=== PATIENT | female | born 1970 | race Caucasian/White ===

== ENCOUNTER 2022-05-04 13:24 | Outpatient (CLI) | payer MEDICARE, SELFPAY ==
--- NOTE | 2022-05-04 13:31 | MM_ITS ---
WS: [id number] BILATERAL 3D TOMOSYNTHESIS DIGITAL SCREENING MAMMOGRAPHY WITH CAD CLINICAL INFORMATION: SCREENING HISTORY: Screening mammogram. No current complaints. COMPARISON: July 27, 2016 TECHNIQUE: Bilateral CC and MLO views. FINDINGS: Scattered fibroglandular densities bilaterally. Punctate and lucent centered calcifications. No suspi cious focal mass, asymmetry, calcifications, or architectural distortion. No evidence of malignancy. MM/[place] [id number] IMPRESSION: BI-RADS: 2-Benign FOLLOW UP: 1 Year Follow-up Recommend return to annual screening mammography.
== END 2022-05-04 13:25 | disposition home or self-care (01) ==
LOC: RAD 13:25
PROVIDERS: Visit Provider Nurse Practitioner Family
DX: Z12.31 Encounter for screening mammogram for malignant neoplasm of breast (principal)
CPT/HCPCS: 77063; 77067

== ENCOUNTER 2023-07-28 14:02 | Outpatient (CLI) | payer MEDICARE, SELFPAY ==
--- NOTE | 2023-07-28 14:09 | MM_ITS ---
WS: [id number] BILATERAL 3D TOMOSYNTHESIS DIGITAL SCREENING MAMMOGRAM WITH CAD CLINICAL INFORMATION: SCREENING HISTORY: Screening mammogram. No current complaints. COMPARISON: 2021 TECHNIQUE: Bilateral CC and MLO views. FINDINGS: Fatty-replaced breasts bilaterally. No suspicious focal mass, asymmetry, calcifications, or development architect ural distortion. No evidence of malignancy. Incidental punctate calcifications. IMPRESSION: MM/[place] [id number] BI-RADS: 2-Benign FOLLOW UP: 1 Year Follow-up Recommend return to annual screening mammography.
== END 2023-07-28 14:03 | disposition home or self-care (01) ==
PROVIDERS: PCP Family Medicine; Visit Provider Nurse Practitioner Family
DX: Z12.31 Encounter for screening mammogram for malignant neoplasm of breast (principal)
CPT/HCPCS: 77063; 77067

== ENCOUNTER 2023-11-17 13:25 | Observation (INO) | payer MEDICARE, SELFPAY ==
[2023-11-17] VITALS (14 sets, daily range): BP systolic 92–132; BP diastolic 59–79; PULSE 68–97; RESP 16–18; TEMP 36.1–36.9; O2SAT 93–99; BMI 40.1
--- NOTE | 2023-11-17 14:08 | PM.HP ---
Providers/Chief Complaint Admitting Physician: Adalebrto Mix DO Primary Care Provider: Kashmir Lay Chief Complaint: appendicitis History of Present Illness Enriqueta Selby is a 53 year old female to an outside facility with a 2-day history of nausea vomiting diarrhea and abdominal pain. She denies any hematochezia and or melena. Denies any hematemesis. Her abdominal pain began periumbilically and then moved to the right lower quadrant. The pain does not radiate. Pain is dull and constant. Palpation makes pain worse. Nothing makes pain better. CT of the abdomen pelvis done at the outside facility shows acute uncomplicated appendicitis. She has a history of cholecystectomy and no other abdominal surgeries. Review of Systems General: Reports: 10 or more systems reviewed and unremarkable except in HPI and below Medications/Allergies Home Medications Medication Instructions Recorded Confirmed Last Taken Type liothyronine 5 mcg tablet mcg 11/17/23 Unknown History lisinopril 20 tab 11/17/23 Unknown History mg-hydrochlorothiazide 25 mg tablet ondansetron 4 mg disintegrating mg 11/17/23 Unknown History tablet paroxetine HCl 30 mg tablet mg PO 11/17/23 Unknown History thyroid (pork) 120 mg tablet mg 11/17/23 Unknown History ([place] Thyroid) tramadol 50 mg tablet mg 11/17/23 Unknown History Allergies Allergy/AdvReac Type Severity Reaction Status Date / Time Alpha-Gal Allergy ADR-Gastrointestinal Verified 11/17/23 14:06 (Ugqmkvmob-Etlzy-7,3-Gala Upset erythromycin base Allergy ALGY-Rash Verified 11/17/23 14:06 Penicillins Allergy ALGY-Rash Verified 11/17/23 14:06 Vitals/I&O/Wt Last Vital Signs Temp 97 F L 11/17/23 14:04 Pulse 68 11/17/23 14:04 Resp 17 11/17/23 14:04 BP 132/71 11/17/23 14:04 Pulse Ox 94 11/17/23 14:04 O2 Del Method Room Air 11/17/23 14:04 Weight last 48 hrs Weight 241 lb 4.8 oz Physical Exam Narrative: General : Patient is well developed , no acute distress, oriented x3 Head : Normal cephalic, a-traumatic. Ears : Pinnae and external canal are normal. Hearing is normal. Eyes : PERRLA, Sclera and injection are normal. No conjunctival discharge. Nose : Mucous membranes are without erythema. Throat : buccal mucosa is normal, gums are without significant recession or hypertrophy. Lungs : Equal chest rise bilaterally, no use of accessory muscles, trachea is midline. Cor : Rate and rhythm are normal. Abdomen : Soft, ND, tender to palpation right lower quadrant, negative Rovsing sign, no g/r/m Extremities : No edema, no cyanosis or clubbing, dorsalis pedis pulses are present bilaterally, non-tender to palpation of calves. Upper extremities are normal bilaterally. Back : non-tender to palpation, no CVA tenderness. Neuro : CN II - XII intact, Upper and lower extremities have equal and full strength A&P Assessment and plan (1) Acute appendicitis: Plan Laparoscopic Appendectomy The risks and benefits of the procedure, including but not limited to, bleeding, infection, scar, numbness, pain, damage to surrounding structures, conversion to an open procedure, were explained to the patient. He is understanding of the risks and wishes to proceed. Attestations Medical Necessity Statement*: Patient will require 1 night in the hospital for recovery after laparoscopic appendectomy Coding Level of Care Code 59155 Diagnoses Acute appendicitis K35.80
[2023-11-17] MEDS: sodium chloride 0.9% 1,000 ML 30 ML IV (14:12)
--- NOTE | 2023-11-17 14:15 | ANES.PREANE2 ---
Pre-Anesthetic Assessment Height/Weight: Height 1.65 m Weight 109.452 kg Temp Pulse Resp BP Pulse Ox O2 Del Method 97 F L 68 17 132/71 94 Room Air 11/17/23 14:04 11/17/23 14:04 11/17/23 14:04 11/17/23 14:04 11/17/23 14:04 11/17/23 14:04 Operation Date: 11/17/23 14:00 Proposed Procedures p Laparoscopic Appendectomy(Not Applicable) - Adalberto Mix DO Familial anesthetic complications: Patient describes difficulty with intubation b/c of braces and TMJ Was Beta Jj taken within 24 hours: N/A Was Clonidine taken within 24 hours: N/A Social No alcohol and No tobacco Exam alert, oriented x 3, clear to auscultation bilaterally and regular rate & rhythm Airway Submandibular: within normal limits Cervical ROM: within normal limits Mallampati: Class III Dentition: full CV/HEM Hypertension Metabolic Morbid Obesity and Thyroid Disease [facility] [place] [facility] [place] Fibromyalgia Anesthetic Plan ASA status: 3 Anesthesia: General Medications/Allergies Home Medications Medication Instructions Recorded Confirmed Last Taken Type liothyronine 5 mcg tablet 5 mcg PO DAILY 11/17/23 11/17/23 11/16/23 History lisinopril 20 20 - 25 tab PO BID 11/17/23 11/17/23 11/16/23 History mg-hydrochlorothiazide 25 mg tablet ondansetron 4 mg disintegrating 4 mg PO PRN PRN Nausea 11/17/23 11/17/23 11/17/23 History tablet paroxetine HCl 30 mg tablet 30 mg PO DAILY 11/17/23 11/17/23 11/16/23 History thyroid (pork) 120 mg tablet 120 mg PO DAILY 11/17/23 11/17/23 11/16/23 History ([place] Thyroid) tramadol 50 mg tablet 50 mg PO DAILY 11/17/23 11/17/23 11/16/23 History Allergies Allergy/AdvReac Type Severity Reaction Status Date / Time Alpha-Gal Allergy ADR-Gastrointestinal Verified 11/17/23 14:06 (Raiaewcgp-Veijh-5,3-Gala Upset erythromycin base Allergy ALGY-Rash Verified 11/17/23 14:06 Penicillins Allergy ALGY-Rash Verified 11/17/23 14:06 Current Medications Generic Name Dose Route Start Last Admin Trade Name Freq PRN Reason Stop Dose Admin Sodium Chloride 1,000 mls @ 30 mls/hr 11/17/23 14:00 11/17/23 14:12 Sodium Chloride 0.9% IV 11/18/23 13:59 30 mls/hr .Q24H FRANCISCA Administration Data Anesthesia Cardiac Studies: No Data to Display
[2023-11-17] MEDS: clindamycin 600 MG/50 ML PREMIX 100 MG IV (14:29)
[2023-11-17] MEDS: lidocaine-epi 2% 20 mL INJ 10 ML INJECTION (14:52)
--- NOTE | 2023-11-17 15:14 | P.OP_ITS ---
Operative Report Date of procedure: November 17, 2023 Pre-op diagnosis: Acute appendicitis Post-op diagnosis: same Procedure done: Laparoscopic appendectomy Implants: None Specimens removed/disposition: Appendix Surgeon: Adalberto Mix DO Anesthesia: General Estimated blood loss (mL): 5 Complications: None apparent Brief History: This very pleasant 53-year-old female presented to the hospital with abdominal pain. She was diagnosed with acute appendicitis. Laparoscopic appendectomy was indicated. The risk and benefits were explained and documented. Procedure: Patient was wheeled into the operative room and placed on the OR table in a supine position. Abdomen was inspected prepped and draped in usual sterile fashion. Time-out was performed and all present were in agreement. A 15 blade scalp was used to make a stab incision in the left upper quadrant and intra- abdominal insufflation was achieved using a Veress needle. After localizing the tissue incisions were made and a 12 millimeter trocar was placed into the umbilicus as well as a 5mm in the right lower quadrant and a 5 mm in the left lower quadrant . The appendix was identified and was mildly inflamed. I used the Voyant to ligate the mesoappendix at the base. I then used 2 PDS endo-loops to snare the base of the appendix. I then used the Voyant to ligate the appendix distally. The appendix was removed from the abdomen using an Endo- Catch bag through the umbilical incision. I examined the abdomen and no further pathology was identified. Hemostasis was noted. I then closed the umbilical site with a Prashant-Chel and 0 Vicryl suture in a figure of 8 fashion. All ports removed. Skin was washed and dried. Incisions were closed with 4 O Vicryl in a subcuticular interrupted fashion. Skin glue was applied. Patient tolerated the procedure well.
--- NOTE | 2023-11-17 15:50 | ANE.PACU2 ---
Inpatient post-anesthesia follow up: Airway intact: Yes Vital signs: Temperature 97.1 F Pulse Rate 85 Respiratory Rate 17 Blood Pressure 118/60 Pulse Oximetry 98 Oxygen Delivery Me thod Room Air Oxygen Flow Rate 6 Fraction of Inspir ed Oxygen Hydration adequate: Yes Nausea and vomiting: No Pain level: 3 Mental status: Baseline
[2023-11-17] MEDS: D5-NS 0.45% + KCL 20 mEq 20 MEQ/1,000 ML BAG 75 MEQ IV (17:44)
[2023-11-17] MEDS: ketorolac 30 mg/mL INJ IVP ×2 (17:46→21:58)
[2023-11-18] VITALS: BP 98/60; PULSE 78; RESP 17; TEMP 36.9; O2SAT 95
[2023-11-18 04:00] VITALS: BP 99/65; PULSE 80; RESP 17; TEMP 36.9; O2SAT 94
[2023-11-18] MEDS: ketorolac 30 mg/mL INJ IVP (04:46)
[2023-11-18 06:00] VITALS: BMI 40.6
[2023-11-18 08:00] VITALS: BP 123/71; PULSE 84; RESP 14; TEMP 36.5; O2SAT 96
[2023-11-18] MEDS: liothyronine 5 mcg Tablet PO (08:22)
[2023-11-18] MEDS: thyroid 60 mg Tablet 120 MG PO (08:22)
[2023-11-18] MEDS: pantoprazole DR 40 mg Tablet PO (08:23)
[2023-11-18] MEDS: PARoxetine 20 mg Tablet 30 MG PO (08:23)
--- NOTE | 2023-11-18 09:55 | PM.DCS ---
Discharge Providers Date of Admission: 11/17/23 13:25 Date of Discharge: November 18, 2023 Attending Provider at Admission: Adalberto Mix DO Attending Provider at Discharge: Adalberto Mix DO Primary Care Provider: Kashmir Lay Diagnoses at Discharge Discharge Diagnosis (1) Acute appendicitis: Status: Acute Reason for Visit Reason for Visit: appendicitis Hospital Course Hospital Course This is a very pleasant 53-year-old female who presented to the hospital with acute appendicitis. She underwent laparoscopic appendectomy and was discharged home the next day in good condition Physical Exam Narrative: General : Patient is well developed , no acute distress, oriented x3 Head : Normal cephalic, a-traumatic. Ears : Pinnae and external canal are normal. Hearing is normal. Eyes : PERRLA, Sclera and injection are normal. No conjunctival discharge. Nose : Mucous membranes are without erythema. Throat : buccal mucosa is normal, gums are without significant recession or hypertrophy. Lungs : Equal chest rise bilaterally, no use of accessory muscles, trachea is midline. Cor : Rate and rhythm are normal. Abdomen : Soft, ND, appropriately tender no g/r/m Extremities : No edema, no cyanosis or clubbing, dorsalis pedis pulses are present bilaterally, non-tender to palpation of calves. Upper extremities are normal bilaterally. Back : non-tender to palpation, no CVA tenderness. Neuro : CN II - XII intact, Upper and lower extremities have equal and full strength Discharge Data Studies Completed and Pending Pending at discharge Category Date Time Status Pathology: Surgical [PTH] Routine Pth 11/17/23 15:04 Ordered Procedures Performed Laparoscopic appendectomy Vitals Last Vital Signs Temp 97.7 F 11/18/23 08:00 Pulse 84 11/18/23 08:00 Resp 14 11/18/23 08:00 BP 123/71 11/18/23 08:00 Pulse Ox 96 11/18/23 08:00 O2 Del Method Room Air 11/18/23 04:00 O2 Flow Rate 6 11/17/23 15:21 Discharge Plan Discharge Patient Disposition: Home Condition: Stable Prescriptions: New hydrocodone-acetaminophen 7.5-325 mg tablet 1 tab PO Q6H PRN (Reason: pain) Qty: 20 0RF DOK 100 mg capsule 100 mg PO BID Qty: 14 0RF clindamycin HCl 150 mg capsule 150 mg PO QID 7 Days Qty: 28 0RF Continued liothyronine 5 mcg tablet 5 mcg PO DAILY paroxetine HCl 30 mg tablet 30 mg PO DAILY lisinopril-hydrochlorothiazide 20-25 mg tablet 20 - 25 tab PO BID ondansetron 4 mg tablet,disintegrating 4 mg PO PRN PRN (Reason: Nausea) thyroid (pork) [[place] Thyroid] 120 mg tablet 120 mg PO DAILY Held tramadol 50 mg tablet 50 mg PO DAILY Hold Instructions: Resume on 11/23/23. Discharge Orders: Discharge Order (Routine); Ordered 11/18/23 Ordered By: Adalberto Mix Referrals: Adalberto Mix DO [Physician] - 2 weeks Discharge Diet: Advance as tolerated Discharge Activity: Resume usual activity Patient Instructions: Opioid Safety, Post Anesthesia Care Activity Restrictions/Additional Instructions: Do not soak incisions underwater for 2 weeks. Shower daily. Discharge Attestations Time Spent in Discharge Care*: less than 30 min Quality Metrics Clinical Quality Measures [ No reported AMI, CVA or VTE this stay] Coding Level of Care Code Acute Code for [facility] Diagnoses Acute appendicitis K35.80
[2023-11-18 10:37] VITALS: BP 123/71; PULSE 84; RESP 14; TEMP 36.5; O2SAT 96
[2023-11-18 11:31] VITALS: BP 120/76; PULSE 75; RESP 16; TEMP 36.8; O2SAT 93
--- NOTE | 2023-11-18 12:35 | PC.CHAP ---
Pastoral Care Encounter/Spiritual Assessment Type of Contact [] Declined pharmacy informatics manager visit [] Patient/Family/Request visit [] Outpatient visit [] Follow-up visit [] Physician referral [] Code/Alert [] Routine visit [] Staff referral [] Actively dying [] Patient sleeping [] Family support [] [x] Out of room [] Palliative care [] [] Receiving care in room [] Pre-surgical visit [] Trauma [] Long length of stay [] ICU visit [] Other: Relational/Emotional Strength [] Patient feels connected with others/family/visitors/staff [] Distress [] Loneliness/isolation [] Abandonment Spirituality of Patient [] Person of Whit [] Attends [place] of their Whit [] Believes in Prayer [] Reads Bible or Episcopal materials [] There are Spiritual issues to be addressed Dialysis Social Worker Interventions [] Prayer [] Active listening [] Non-anxious presence [] Spiritual/emotional support [] Crisis/trauma care [] Spiritual counseling [] Bereavement support [] Provided bereavement packet [] Provided Bible/devotional materials [] Provided toy/stuffed animal, coloring book to patient or family member [] Provided Communion [] Anointing/[place] [] Salvation [] Completed spiritual assessment [] Other: Impact on Illness or Injury [] Angry [] Fearful [] Anxious [] Often cries [] Exhaustion [] Unable to work [] Unable to attend bahai [] Unable to walk/stand [] Unable to read [] Unable to drive [] Unable to eat/drink [] Unable to sleep [] Unable to be with family [] Patient intubated [] Other: Summary Time spent with patient 0 min
== END 2023-11-18 12:40 | disposition home or self-care (01) ==
PROVIDERS: Admitting Provider Surgery; PCP Family Medicine; Visit Provider Surgery
PROC: 0DTJ4ZZ Resection of Appendix, Percutaneous Endoscopic Approach (ICD-10-PCS; CPT 44970; principal; 2023-11-17 14:00)
DX: K35.80 Unspecified acute appendicitis (principal); I10 Essential (primary) hypertension; E66.01 Morbid (severe) obesity due to excess calories; Z68.41 Body mass index [BMI] 40.0-44.9, adult; M79.7 Fibromyalgia
CPT/HCPCS: 44970; 88304; G0378; G0379; J0330; J1100; J1885; J2250; J2405; J2704; J2710; J3010; J3490; J7030

== ENCOUNTER → 2023-12-08 10:42 | Outpatient (BNVA) | payer MEDICARE, SELFPAY | PROVIDERS: PCP Family Medicine; Visit Provider Surgery | DX: Z98.890 Other specified postprocedural states (principal) | CPT/HCPCS: 99024 ==